=== PATIENT | female | born 1960 ===

== ENCOUNTER → 2021-12-23 13:20 | Outpatient (CLI) | payer OTHER, SELFPAY ==
--- NOTE | 2021-12-23 | DI.MG.S_ITS ---
UNILATERAL RIGHT DIGITAL DIAGNOSTIC MAMMOGRAM 3D/2D WITH ADDITIONAL VIEWS: 12/23/2021 CLINICAL: Additional evaluation requested from prior study. Comparison is made to exams dated: 08/29/2021 mammogram and 06/13/2012 mammogram - outside location. The tissue of right breast is predominantly fatty. There are new grouped pleomorphic calcifications in the right breast at 10 o'clock middle depth. These are seen in additional views. No other significant masses or calcifications are seen in the breast. IMPRESSION: SUSPICIOUS OF MALIGNANCY The new grouped pleomorphic calcifications in the right breast are at a moderate suspicion for malignancy. A stereotactic biopsy is recommended. These findings and recommendation were discussed with the patient by Dr Leblanc. This exam was interpreted at Station ID: [id number]. NOTE: For mammograms, a report in lay terms will be sent to the patient. Approximately 15% of breast malignancies will not be visualized mammographically. In the management of a palpable breast mass, a negative mammogram must not discourage biopsy of a clinically suspicious lesion. Electronically Signed By: Francisco Javeir Velez acr/:12/23/2021 14:09:58 letter sent: Biopsy Required ACR BI-RADS Category 4b: Suspicious abnormality - intermediate suspicion of malignancy [id number]
== END ==
PROVIDERS: PCP Student in an Organized Health Care Education/Training Program; Referring Provider Student in an Organized Health Care Education/Training Program; Visit Provider Student in an Organized Health Care Education/Training Program
DX: R92.1 Mammographic calcification found on diagnostic imaging of breast (principal)
CPT/HCPCS: 77065; G0279